=== PATIENT | male | born 1950 | race Caucasian/White ===

== ENCOUNTER → 2020-11-01 | Outpatient (CLI) | payer MEDICARE, OTHER ==
[~2020-11-01] MED LIST: ALBUTEROL; ALLOPURINOL300 MG PO; ASPIRIN EC81 MG PO; CLARITIN10 M2 PO; COLCHICINE0.6 M1 PO; CYANOCOBALAMIN; FLOMAX 0.4 MG0.4 MG PO; FOLIC ACID; FUROSEMIDE40 MG PO; LIPITOR80 MG PO; MAGNESIUM400 M2 PO; MULTIVITAMIN; PREGABALIN200 MG PO; TOPROL XL50 MG PO; TURMERIC; ULTRAM50 MG PO; ZESTRIL5 MG PO; ZETIA10 MG PO; ZYVOX 600 MG T600 MG PO
== END ==
LOC: CT 12:27
DX: I87.1 Compression of vein (principal); I73.9 Peripheral vascular disease, unspecified; I65.23 Occlusion and stenosis of bilateral carotid arteries
CPT/HCPCS: 36415; 82565; 93880; 93922; 93925; Q9967

== ENCOUNTER → 2020-11-08 | Outpatient (CLI) | payer MEDICARE, OTHER | LOC: HEART 5 10-27 11:00 | DX: I83.93 Asymptomatic varicose veins of bilateral lower extremities (principal); I87.2 Venous insufficiency (chronic) (peripheral) | CPT/HCPCS: 93970 ==

== ENCOUNTER → 2020-12-15 | Outpatient (CLI) | payer MEDICARE, OTHER | LOC: RAD 13:46 | DX: N20.0 Calculus of kidney (principal) | CPT/HCPCS: 74018 ==

== ENCOUNTER → 2020-12-29 | Outpatient (CLI) | payer MEDICARE, OTHER ==
[2020-12-29 11:21] LABS: BUN/CREATININE RATIO 20 (0-10)
== END ==
LOC: OPSV2 09:30
PROVIDERS: Urology
DX: Z01.818 Encounter for other preprocedural examination (principal); N30.01 Acute cystitis with hematuria; I10 Essential (primary) hypertension; I48.91 Unspecified atrial fibrillation; I25.2 Old myocardial infarction
CPT/HCPCS: 36415; 80048; 93005

== ENCOUNTER → 2020-12-30 | Day surgery (SDC) | payer MEDICARE, OTHER | END | disposition home or self-care (01) | LOC: OR 10:21 | DX: N20.0 Calculus of kidney (principal); K21.9 Gastro-esophageal reflux disease without esophagitis; I25.2 Old myocardial infarction; I25.10 Atherosclerotic heart disease of native coronary artery without angina pectoris; I11.0 Hypertensive heart disease with heart failure; E78.5 Hyperlipidemia, unspecified; I50.9 Heart failure, unspecified; J18.9 Pneumonia, unspecified organism; J40 Bronchitis, not specified as acute or chronic; F41.8 Other specified anxiety disorders; I48.91 Unspecified atrial fibrillation; N39.0 Urinary tract infection, site not specified; Z88.1 Allergy status to other antibiotic agents; Z79.82 Long term (current) use of aspirin; Z83.3 Family history of diabetes mellitus; Z82.49 Family history of ischemic heart disease and other diseases of the circulatory system; Z87.891 Personal history of nicotine dependence; Z99.81 Dependence on supplemental oxygen | CPT/HCPCS: C1769; C2617; J1100; J1956; J2001; J2405; J2704; J3010; J7030; J7120 ==

== ENCOUNTER → 2022-01-18 | Outpatient (CLI) | payer MEDICARE, OTHER | LOC: HEART 5 13:34 | DX: R06.2 Wheezing (principal); R06.00 Dyspnea, unspecified | CPT/HCPCS: 71046; 94060; 94729; 95012 ==